=== PATIENT | female | born 1970 | race Two or more races ===

== ENCOUNTER 2023-08-14 15:07 | Inpatient (IN) | payer OTHER ==
[~2023-08-14] VITALS: Ht 149.9 cm; Wt 87.5 kg
[2023-08-14] MEDS ORDERED: CARVEDILOL ER40 MG (16:15)
[2023-08-14] MEDS ORDERED: ATORVASTATIN CA40 MG PO (16:15)
[2023-08-14] MEDS ORDERED: BENICAR40 MG PO (16:16)
[2023-08-14] MEDS ORDERED: HYDROCHLOROTHIA25 MG PO (16:16)
[2023-08-14] MEDS ORDERED: ADULT LOW DOSE81 M1 PO (16:16)
[2023-08-14] MEDS ORDERED: HUMALOG100 UNIT/2 SUBCUTANEO (16:17)
[2023-08-14] MEDS ORDERED: LANTUS SOL100 UNIT/1 SUBCUTANEO (16:17)
[2023-08-14] MEDS ORDERED: AMLODIPINE-OLM1 EAC2 (16:17)
[2023-08-14] MEDS ORDERED: METFORMIN HCL500 MG (16:17)
[2023-08-14 18:04] LABS: HEMATOCRIT 32.8 % (36.0-45.00); MEAN CELL VOLUME 77.3 fL (80.00-100.00); MEAN CORPUSCULAR HGB CONC 33.6 g/dl (32.0-36.0); PLATELET COUNT 278 K/uL (150-450); RED BLOOD COUNT 4.24 M/uL (4.00-6.00); RED CELL DISTRIBUTION WIDTH 14.3 % (11.5-14.5)
[2023-08-14 18:23] LABS: INR 1.04; PROTHROMBIN TIME 10.9 SECONDS (9.0-11.5)
[2023-08-14 18:33] LABS: ALBUMIN 3.9 gm/dL (3.4-5.0); BILIRUBIN TOTAL 0.32 mg/dL (0.3-1.2); CALCIUM 10.1 mg/dL (8.5-10.1); GFR 8.04; GLOBULINA 4.7 G/DL (2.4-3.5); POTASSIUM 4.84 mEq/L (3.5-5.1); TOTAL PROTEIN 8.6 gm/dL (6.4-8.2)
[2023-08-14 18:41] LABS: CREATININE SERUM 5.58 mg/dL (0.55-1.02)
[2023-08-14 18:53] LABS: PH,URINE 5.5 (5.0-8.0); URINE APPEARANCE Clear; URINE BILIRRUBIN Negative (NEGATIVE); URINE BLOOD Negative; URINE COLOR Yellow; URINE LEUKOCYTE Negative; URINE NITRATE Negative; URINE PROTEIN 30 (NEGATIVE); URINE UROBILINOGEN 0.2 E.U./dl
[2023-08-14 18:56] LABS: URINE BACTERIA 411.9 uL (0.0-1933); URINE EPITHELIAL CELLS 17.7 uL (0.0-38.8); URINE WBC 5.2 uL (0.0-23.2)
[2023-08-14 19:22] LABS: URINE GLUCOSE 250 MG/DL (NEGATIVE)
[2023-08-14 20:23] LABS: URINE EPITHELIAL CELLS 0-4 /HPF
[2023-08-14] MEDS ORDERED: hydrALAZINE HCL 10 MG TABLET PO PRN (21:30)
[2023-08-14] MEDS ORDERED: ONDANSETRON HCL 4 MG in 0.9 % SODIUM CHLORIDE 50 ML IV PRN (21:30)
[2023-08-14] MEDS ORDERED: ACETAMINOPHEN 500 MG GEL..CAP PO PRN (21:30)
[2023-08-14] MEDS ORDERED: 0.9 % SODIUM CHLORIDE 1,000 ML IV SCH (21:30)
[2023-08-14] MEDS ORDERED: INSULIN LISPRO 1,000 UNIT/10 ML UNITS SUBCUTANEO PRN (21:45)
[2023-08-14] MEDS ORDERED: DEXTROSE 50 % IN WATER 0.5 G/ML DISP.SYRIN IV PRN (21:45)
[2023-08-14 22:40] LABS: ABG PH 7.409 (7.35-7.45); ABG PO2 105.3 mmHg (80-100); ABG pCO2 33.1 mmHg (35-45); BASE EXCESS -3.2 mmol/l; BICARBONATE 20.5 mmol/l (23-25); Tco2 21.5 mmol/l; allen test SATISFACTORY; o2 21 %; puncture site RADIAL RIGHT
[2023-08-15 07:44] LABS: CHOL HDL RATIO 5.2 (0-5.0); MAGNESIUM 1.6 mg/dL (1.8-2.4); PHOSPHOROUS 5.2 mg/dL (2.5-4.9)
[2023-08-15 07:46] LABS: ALBUMIN 3.6 gm/dL (3.4-5.0); CALCIUM 9.2 mg/dL (8.5-10.1); GFR 9.82; PHOSPHOROUS 5.3 mg/dL (2.5-4.9); POTASSIUM 4.63 mEq/L (3.5-5.1); URIC ACID 8.7 mg/dL (2.5-7.5)
[2023-08-15 08:13] LABS: CREATININE SERUM 4.69 mg/dL (0.55-1.02)
[2023-08-15] MEDS ORDERED: AMLODIPINE BESYLATE 5 MG TABLET PO SCH (09:00)
[2023-08-15] MEDS ORDERED: CARVEDILOL 6.25 MG TABLET PO SCH (09:00)
[2023-08-15] MEDS ORDERED: ATORVASTATIN CALCIUM 40 MG TABLET PO SCH (09:00)
[2023-08-15] MEDS ORDERED: FAMOTIDINE/PF 20 MG in 0.9 % SODIUM CHLORIDE 8 ML IV PUSH SCH (09:00)
[2023-08-16 08:59] LABS: CALCIUM 8.9 mg/dL (8.5-10.1); CREATININE SERUM 3.4 mg/dL (0.55-1.02); GFR 14.24; POTASSIUM 4.5 mEq/L (3.5-5.1)
[2023-08-16 11:47] LABS: URINE PROT QUANT 24HR 41.8 MG/DL
[2023-08-16 11:51] LABS: URINE PROT QUANT 24 HR 1358.5 MG/24HR (42-225)
[2023-08-16 11:59] LABS: CREATINE CLEARANCE 24.7 ML/MIN (97-137); CREATININE SERUM 3.4 mg/dL (0.6-1.0)
[2023-08-16] MEDS ORDERED: INSULIN LISPRO 1,000 UNIT/10 ML UNITS SUBCUTANEO STA (13:04)
[2023-08-16] MEDS ORDERED: INSULIN GLARGINE,HUM.REC.ANLOG 1,000 UNITS/10 ML UNITS SUBCUTANEO SCH (17:00)
[2023-08-16] MEDS ORDERED: INSULIN LISPRO 1,000 UNIT/10 ML UNITS SUBCUTANEO SCH (17:00)
[2023-08-16] MEDS ORDERED: AMINO ACIDS/PROTEIN HYDROLYS 30 ML BLIST.PACK PO SCH (17:11)
[2023-08-17 07:28] LABS: CALCIUM 8.7 mg/dL (8.5-10.1); CREATININE SERUM 2.59 mg/dL (0.55-1.02); GFR 19.49; POTASSIUM 4.07 mEq/L (3.5-5.1)
[2023-08-17] MEDS ORDERED: AMINO ACIDS 1 EACH TABLET PO SCH (18:30)
[2023-08-17] MEDS ORDERED: INSULIN GLARGINE,HUM.REC.ANLOG 1,000 UNITS/10 ML UNITS SUBCUTANEO SCH ×2 (21:00)
[2023-08-18 07:16] LABS: CREATININE SERUM 1.67 mg/dL (0.55-1.02); GFR 32.34; POTASSIUM 4.05 mEq/L (3.5-5.1)
[2023-08-18] MEDS ORDERED: INSULIN LISPRO 1,000 UNIT/10 ML UNITS SUBCUTANEO SCH (08:00)
== END 2023-08-19 09:42 | disposition home or self-care (01) | DRG 684 ==
LOC: ER 15:07 → SEC-K 21:38 → MEDJ 21:38
PROVIDERS: General Practice; Internal Medicine; Specialist/Technologist, Other Nephrology; ADMIT Internal Medicine; ATTEND Internal Medicine
PROC: BT4JZZZ Ultrasonography of Kidneys and Bladder (ICD-10-PCS; principal; 2023-08-14)
PROC: B24BZZZ Ultrasonography of Heart with Aorta (ICD-10-PCS; 2023-08-16)
DX: N17.9 Acute kidney failure, unspecified (principal); I12.9 Hypertensive chronic kidney disease with stage 1 through stage 4 chronic kidney disease, or unspecified chronic kidney disease; N18.5 Chronic kidney disease, stage 5; E11.22 Type 2 diabetes mellitus with diabetic chronic kidney disease; D63.1 Anemia in chronic kidney disease; Z79.4 Long term (current) use of insulin; E78.5 Hyperlipidemia, unspecified

== ENCOUNTER 2024-07-02 15:15 | Inpatient (IN) | payer OTHER ==
[~2024-07-02] VITALS: Ht 175.3 cm; Wt 83.5 kg
[~2024-07-02 15:15] MED LIST: ADULT LOW DOSE81 M1 PO; AMLODIPINE-OLM1 EAC2; ATORVASTATIN CA40 MG PO; BENICAR40 MG PO; CARVEDILOL ER40 MG; HUMALOG100 UNIT/2 SUBCUTANEO; HYDROCHLOROTHIA25 MG PO; LANTUS SOL100 UNIT/1 SUBCUTANEO; METFORMIN HCL500 MG
[2024-07-02] MEDS ORDERED: JARDIANCE10 MG PO (15:47)
[2024-07-02 18:10] LABS: HEMATOCRIT 36.2 % (36.0-45.00); HEMOGLOBIN 12.1 g/dL (12.0-15.00); MEAN CELL VOLUME 76.6 fL (80.00-100.00); MEAN CORPUSCULAR HEMOGLOBIN 25.5 pg (27.00-32.0); MEAN CORPUSCULAR HGB CONC 33.3 g/dl (32.0-36.0); PLATELET COUNT 273 K/uL (150-450); RED BLOOD COUNT 4.73 M/uL (4.00-6.00)
[2024-07-02 18:30] LABS: INR 1.02; PARTIAL THROMBOPLASTIN TIME 25.9 SECONDS (22.0-34.0); PROTHROMBIN TIME 11.1 SECONDS (9.0-11.5)
[2024-07-02 18:34] LABS: ALBUMIN 3.9 gm/dL (3.4-5.0); BILIRUBIN TOTAL 0.49 mg/dL (0.3-1.2); CALCIUM 9.6 mg/dL (8.5-10.1); CREATININE SERUM 2.83 mg/dL (0.55-1.02); GFR 17.53; GLOBULINA 4.4 G/DL (2.4-3.5); POTASSIUM 4.2 mEq/L (3.5-5.1); TOTAL PROTEIN 8.3 gm/dL (6.4-8.2)
[2024-07-02 18:51] LABS: PH,URINE 5.5 (5.0-8.0); URINE APPEARANCE Clear; URINE BILIRRUBIN Negative (NEGATIVE); URINE BLOOD Negative; URINE COLOR Yellow; URINE KETONE Negative (NEGATIVE); URINE LEUKOCYTE Small; URINE NITRATE Negative; URINE PROTEIN Negative (NEGATIVE); URINE UROBILINOGEN 0.2 E.U./dl
[2024-07-02 18:54] LABS: URINE BACTERIA 114.9 uL (0.0-1933); URINE EPITHELIAL CELLS 16.2 uL (0.0-38.8); URINE WBC 81.6 uL (0.0-23.2)
[2024-07-02 19:14] LABS: URINE GLUCOSE 500 MG/DL (NEGATIVE); URINE RBC 0.5 uL (0.0-20.8)
[2024-07-02] MEDS ORDERED: ONDANSETRON HCL 4 MG in 0.9 % SODIUM CHLORIDE 50 ML IV PRN (20:45)
[2024-07-02] MEDS ORDERED: DEXTROSE 50 % IN WATER 0.5 G/ML DISP.SYRIN IV PRN (20:45)
[2024-07-02] MEDS ORDERED: INSULIN LISPRO 1,000 UNIT/10 ML UNITS SUBCUTANEO PRN (20:45)
[2024-07-02] MEDS ORDERED: ACETAMINOPHEN 500 MG GEL..CAP PO PRN (20:45)
[2024-07-02] MEDS ORDERED: 0.9 % SODIUM CHLORIDE 1,000 ML IV SCH (20:45)
[2024-07-02] MEDS ORDERED: CARVEDILOL 6.25 MG TABLET PO SCH (21:00)
[2024-07-02 23:00] VITALS: BP 132/77; O2SAT 99
[2024-07-03] VITALS (9 sets, daily range): BP systolic 117–147; BP diastolic 64–82; O2SAT 97–100
[2024-07-03 07:43] LABS: MAGNESIUM 1.8 mg/dL (1.8-2.4); PHOSPHOROUS 4.1 mg/dL (2.5-4.9)
[2024-07-03 07:47] LABS: ALBUMIN 3.8 gm/dL (3.4-5.0); BILIRUBIN TOTAL 0.5 mg/dL (0.3-1.2); CALCIUM 9.3 mg/dL (8.5-10.1); CREATININE SERUM 2.3 mg/dL (0.55-1.02); GFR 22.27; POTASSIUM 3.98 mEq/L (3.5-5.1); TOTAL PROTEIN 7.8 gm/dL (6.4-8.2)
[2024-07-03] MEDS ORDERED: AMLODIPINE BESYLATE 5 MG TABLET PO SCH (09:00)
[2024-07-03] MEDS ORDERED: ATORVASTATIN CALCIUM 40 MG TABLET PO SCH (09:00)
[2024-07-03] MEDS ORDERED: FAMOTIDINE/PF 20 MG in 0.9 % SODIUM CHLORIDE 8 ML IV PUSH SCH (09:00)
[2024-07-04] VITALS (9 sets, daily range): BP systolic 120–134; BP diastolic 68–82; O2SAT 90–99
[2024-07-04 07:40] LABS: ALBUMIN 3.5 gm/dL (3.4-5.0); CALCIUM 8.8 mg/dL (8.5-10.1); CREATININE SERUM 2.09 mg/dL (0.55-1.02); GFR 24.87; PHOSPHOROUS 4.3 mg/dL (2.5-4.9); POTASSIUM 4.55 mEq/L (3.5-5.1)
[2024-07-04 07:41] LABS: CALCIUM 8.7 mg/dL (8.5-10.1); CREATININE SERUM 2.08 mg/dL (0.55-1.02); GFR 25.01; POTASSIUM 4.44 mEq/L (3.5-5.1)
[2024-07-04] MEDS ORDERED: INSULIN GLARGINE,HUM.REC.ANLOG 1,000 UNITS/10 ML UNITS SUBCUTANEO SCH (12:05)
[2024-07-04] MEDS ORDERED: INSULIN LISPRO 1,000 UNIT/10 ML UNITS SUBCUTANEO SCH (13:00)
[2024-07-05 00:59] VITALS: O2SAT 97
[2024-07-05 01:29] VITALS: BP 142/72; O2SAT 100
[2024-07-05 05:39] VITALS: O2SAT 99
[2024-07-05 07:30] LABS: ALBUMIN 3.7 gm/dL (3.4-5.0); CREATININE SERUM 1.43 mg/dL (0.55-1.02); GFR 38.53; PHOSPHOROUS 3.5 mg/dL (2.5-4.9); POTASSIUM 4.47 mEq/L (3.5-5.1)
[2024-07-05 08:25] VITALS: BP 128/79; O2SAT 99
[2024-07-05 09:38] VITALS: O2SAT 98
== END 2024-07-05 14:54 | disposition home or self-care (01) | DRG 684 ==
LOC: ER 15:17 → MEDI 21:56
PROVIDERS: General Practice; Internal Medicine; Specialist/Technologist, Other Nephrology; ADMIT Student in an Organized Health Care Education/Training Program; ATTEND Student in an Organized Health Care Education/Training Program
PROC: BT4JZZZ Ultrasonography of Kidneys and Bladder (ICD-10-PCS; 2024-07-02)
PROC: 4A12X4Z Monitoring of Cardiac Electrical Activity, External Approach (ICD-10-PCS; principal; 2024-07-03)
DX: N17.9 Acute kidney failure, unspecified (principal); E86.0 Dehydration; E11.9 Type 2 diabetes mellitus without complications; Z79.4 Long term (current) use of insulin; I10 Essential (primary) hypertension

== ENCOUNTER 2024-11-23 14:56 | Emergency (ER) | payer OTHER ==
[~2024-11-23] VITALS: Ht 144.8 cm; Wt 82.6 kg
[~2024-11-23 14:56] MED LIST changes: +JARDIANCE10 MG PO
[2024-11-23] MEDS ORDERED: ORPHENADRINE CITRATE 30 MG/ML AMPUL IM STA (15:58)
[2024-11-23] MEDS ORDERED: ORPHENADRINE CITRATE 30 MG/ML AMPUL ONE (16:38)
[2024-11-23 17:08] LABS: BASO % 0.2 % (0.1-1.2); EOS # 0.14 (0.04-0.54); EOS % 1.3 % (0.7-7.0); LYMPH # 4.38 (1.18-3.74); LYMPH % 40.0 % (19.3-53.1); MEAN PLATELET VOLUME 11.20 fl (9.4-12.4); MONO # 0.67 (0.24-0.82); MONO % 6.1 % (4.7-12.5); NEUT # 5.72 (1.56-6.13); NEUT % 52.3 % (34.0-71.1); RED CELL DISTRIBUTION WIDTH 14.7 % (11.6-14.4)
[2024-11-23 17:38] LABS: ALT/SGPT 25.0 U/L (12-78); AST/SGOT 10.0 U/L (15-37); BILIRUBIN TOTAL 0.41 mg/dL (0.3-1.2); BUN CREA RATIO 22.0 (7.0-25.0); CREATININE SERUM 1.02 mg/dL (0.55-1.02); GFR 56.91; GLOBULINA 4.1 G/DL (2.4-3.5); GLUCOSE FASTING 64.0 mg/dL (65-100); OSMOLALITY SERUM 283.0 MOSM/KG (275-295)
[2024-11-23 19:26] LABS: URINE APPEARANCE Clear; URINE BILIRRUBIN Negative (NEGATIVE); URINE BLOOD Negative; URINE COLOR Yellow; URINE KETONE Negative (NEGATIVE); URINE LEUKOCYTE Trace; URINE NITRATE Negative; URINE PROTEIN Negative (NEGATIVE); URINE UROBILINOGEN 0.2 E.U./dl
[2024-11-23 19:27] LABS: URINE BACTERIA 230.3 uL (0.0-1933); URINE EPITHELIAL CELLS 8.1 uL (0.0-38.8); URINE WBC 36.7 uL (0.0-23.2)
[2024-11-23 19:33] LABS: URINE CAST 0.73 uL (0.0-1.40); URINE GLUCOSE >=1000 MG/DL (NEGATIVE); URINE RBC 1.1 uL (0.0-20.8)
[2024-11-23] MEDS ORDERED: DICLOFENAC SODI75 MG PO (20:04)
[2024-11-23] MEDS ORDERED: BACTRIM DS TAB1 EACH PO (20:04)
[2024-11-23 20:18] VITALS: BP 110/71; O2SAT 100
== END 2024-11-23 20:21 | disposition home or self-care (01) ==
LOC: ER 14:56
PROVIDERS: Preventive Medicine Public Health & General Preventive Medicine
DX: N39.0 Urinary tract infection, site not specified (principal); E11.9 Type 2 diabetes mellitus without complications; Z79.4 Long term (current) use of insulin; Z79.84 Long term (current) use of oral hypoglycemic drugs; I10 Essential (primary) hypertension